=== PATIENT | female | born 1960 | race Caucasian/White ===

== ENCOUNTER → 2017-05-26 | Outpatient (CLI) | payer OTHER ==
[~2017-05-26] MED LIST: PRILOSEC 20MG20 MG; PRILOSEC 20MG20 MG PO
== END ==
LOC: MC.RAD 11:39
DX: Z12.31 Encounter for screening mammogram for malignant neoplasm of breast (principal)

== ENCOUNTER → 2018-06-18 | Outpatient (CLI) | payer BC | LOC: MC.RAD 16:01 | DX: Z12.31 Encounter for screening mammogram for malignant neoplasm of breast (principal) ==

== ENCOUNTER → 2019-10-04 | Outpatient (CLI) | payer BC | LOC: MC.RAD 14:03 | DX: Z12.31 Encounter for screening mammogram for malignant neoplasm of breast (principal) ==

== ENCOUNTER → 2021-05-21 | Outpatient (CLI) | payer BC | LOC: MC.RAD 14:01 | DX: Z12.31 Encounter for screening mammogram for malignant neoplasm of breast (principal) ==

== ENCOUNTER → 2022-05-30 | Outpatient (CLI) | payer BC | LOC: MC.RAD 13:07 | DX: Z12.31 Encounter for screening mammogram for malignant neoplasm of breast (principal); N64.89 Other specified disorders of breast ==

== ENCOUNTER → 2024-06-07 | Outpatient (CLI) | payer BC ==
[~2024-06-07] MED LIST changes: +BALANCE B-501 TA1 PO; +CIPRO 500MG TA500 MG PO; +EPA FISH OIL1 SGL PO; +FLAGYL500 MG PO; +GINGER ROOT EX250 MG PO; +K2-4545 MCG PO; +LYSINE 500500 MG/TAB PO; +MAGNESIUM GLYC100 MG PO; +MULTI VITAMINS1 TAB PO; +NORCO 325 MG-51 TAB PO; +QUERCETIN500 M1 PO; +SELENIUM200 MC5; +TURMERIC500 MG PO; +VITAMIN B12 1541 TAB PO; +VITAMINC1000TA; +VITAMIND3 5000 PO; +ZINC CHELATE30 MG PO; +ZOFRAN ODT4 MG PO
== END ==
LOC: MC.RAD 08:54
DX: Z12.31 Encounter for screening mammogram for malignant neoplasm of breast (principal); N64.89 Other specified disorders of breast; C50.211 Malignant neoplasm of upper-inner quadrant of right female breast